=== PATIENT | female | born 1990 | race Caucasian/White ===

== ENCOUNTER → 2017-01-31 13:54 | Outpatient (CLI) | payer OTHER ==
[2012-08-27 08:46] VITALS: BMI 28.3
[~2017-01-31 13:54] MED LIST: BIRTH CONTROL PO; HYDROCODONE-APA1 TAB PO; ZOLOFT100 MG PO
== END | disposition home or self-care (01) ==
LOC: D.MRI 13:54
DX: S83.222A Peripheral tear of medial meniscus, current injury, left knee, initial encounter (principal); X58.XXXA Exposure to other specified factors, initial encounter; Y93.89 Activity, other specified; Y92.029 Unspecified place in mobile home as the place of occurrence of the external cause

== ENCOUNTER 2017-02-23 05:24 | Day surgery (SDC) | payer OTHER ==
[2017-02-22 14:08] LABS: HEMATOCRIT 41.8 % (36.0-48.0); HEMOGLOBIN 14.4 g/dL (12-16); MCH 31.6 pg (26.0-34.0); MCHC 34.4 g/dL (31.0-37.0); MCV 91.9 fL (80.0-100.0); MEAN PLATELET VOLUME 9.7 fL (7.4-10.4); RBC 4.55 10x6/uL (4.00-5.40); RDW 13.7 % (11.5-14.5); WBC 12.7 10x3/uL (4.8-10.8)
[~2017-02-23 05:24] MED LIST changes: -HYDROCODONE-APA1 TAB PO
[2017-02-23 07:12] VITALS: BP 116/72; BMI 38.2
[2017-02-23 07:25] LABS: HCG URINE NEGATIVE (NEGATIVE)
[2017-02-23] MEDS ORDERED: HYDROCODONE-APA1 TAB PO (09:49)
--- NOTE | 2017-02-23 13:19 | OP ---
PATIENT NAME: MARIZA GIBSON MEDICAL RECORD: [id number] :88 LOCATION:D.OPS ADMISSION DATE: SURGEON: DELIA FLORES MD DATE OF OPERATION: 02/23/2017 PREOPERATIVE DIAGNOSES: 1. Lateral meniscus tear of the left knee. 2. Patellofemoral syndrome of the left knee. POSTOPERATIVE DIAGNOSES: 1. Lateral meniscus tear of the left knee. 2. Patellofemoral syndrome of the left knee. PROCEDURES: 1. Arthroscopic partial lateral meniscectomy. 2. Arthroscopic lateral release, left knee. SURGEON: Delia Flores MD ANESTHESIA: General. INTRAOPERATIVE COMPLICATIONS: None. 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 Intraoperative photographs were taken that showed fissuring of the lateral facet of the patella. The patient had a small meniscal tear on the posterior medial side of the lateral meniscus with a small meniscal cyst. OPERATIVE SUMMARY IN DETAIL: After obtaining the appropriate preoperative orthopedic surgery consent as well as anesthetic consultation, evaluation and clearance, the patient was brought to the operating room and placed on the operating table in supine position. After general laryngeal mask was administered, tourniquet was placed about the proximal aspect of left lower extremity. Left lower extremity was then prepped and draped in routine sterile fashion. The leg was elevated and exsanguinated, tourniquet inflated to 350 mmHg. Routine inferolateral portal was established followed by superomedial portal and inferomedial portal. Diagnostic arthroscopy did reveal the above findings. Attention was first turned to the lateral meniscal debridement, a small arthroscopic resector was utilized to debride the small radial tear with meniscal cyst that was very close to the notch. Having completed this, photographs were taken of the lateral facet of the patella and then a Taylor tissue ablation system was utilized to do a lateral release from the vastus lateralis to the inferolateral portal. Having completed this, the knee was insufflated with 30 cc of 0.25% Marcaine with epinephrine and 80 mg of Depo-Medrol. Arthroscopy portals were closed in routine interrupted fashion using 4-0 Prolene. Sterile dressings were applied. The patient was awakened, taken to recovery in stable condition. All final needle and sponge counts were correct. TRANSINT:[id number] Voice Confirmation ID: [id number] DOCUMENT ID: [id number] OPERATIVE REPORT [id number] MARIZA GIBSON MD, DELIA NARANJO at 1319 CC: [id number] DICTATION DATE: 02/23/17947 [place] PANEL JOINER: 02/23/17 1134 REG [place] [id number] [place] [id number]
--- NOTE | 2017-02-23 14:55 | NUR ---
1140 IV DC WITH CATHER TIP INTACT
== END 2017-02-23 12:00 | disposition home or self-care (01) ==
LOC: D.OPS 05:24 → D.PAN 11:50 → D.OPS 12:00 → D.PAN 13:00 → D.OPS 13:00
PROVIDERS: Anesthesiology; Orthopaedic Surgery
DX: S83.282A Other tear of lateral meniscus, current injury, left knee, initial encounter (principal); M22.2X2 Patellofemoral disorders, left knee; F17.200 Nicotine dependence, unspecified, uncomplicated; E66.01 Morbid (severe) obesity due to excess calories; Z68.38 Body mass index [BMI] 38.0-38.9, adult; Z01.812 Encounter for preprocedural laboratory examination